=== PATIENT | male | born 1975 | race African-American/Black ===

== ENCOUNTER 2024-12-07 13:57 | Emergency (ER) | payer BC ==
[~2024-12-07] VITALS: Ht 180.3 cm; Wt 79.5 kg
[2024-12-07 14:31] VITALS: O2SAT 99
[2024-12-07 14:54] LABS: CLARITY URINE CLEAR (CLEAR); COLOR URINE YELLOW (YELLOW); GLUCOSE URINE NEGATIVE (NEGATIVE); KETONES URINE TRACE (NEGATIVE); LEUKOCYTE ESTERASE URINE NEGATIVE (NEGATIVE); NITRITE URINE NEGATIVE (NEGATIVE); OCCULT BLOOD URINE NEGATIVE (NEGATIVE); PROTEIN URINE NEGATIVE (NEGATIVE)
[2024-12-07 15:08] LABS: MUCUS URINE 3+ /lpf (NONE/TRACE); SQUAMOUS EPITHELIAL CELL URINE RARE /lpf (RARE/1+)
[2024-12-07 15:09] LABS: BACTERIA URINE NONE SEEN; RBC URINE NONE SEEN /hpf (0-2); WBC URINE 0-2 /hpf (0-2)
[2024-12-07 15:16] LABS: BASOPHILS % 0.5 % (0.0-2.0); EOSINOPHILS % 1.5 % (0.0-5.0); HEMATOCRIT. 41.5 % (42.0-52.0); HEMOGLOBIN. 14.2 g/dL (14.0-18.0); LYMPHOCYTES % 17.7 % (20.0-50.0); MEAN CORPUSCULAR HEMOGLOBIN 29.9 pg (28.0-32.0); MEAN CORPUSCULAR HGB CONC 34.2 g/dL (31.0-37.0); MEAN CORPUSCULAR VOLUME 87.6 fL (80.0-94.0); MEAN PLATELET VOLUME 7.5 fl (7.4-10.4); MONOCYTES % 7.6 % (2.0-8.0); NEUTROPHILS % 72.7 % (40.0-76.0); PLATELET 299 x1000/uL (130-400); RED BLOOD CELL COUNT 4.75 mill/uL (4.7-6.1); RED CELL DISTRIBUTION WIDTH 13.1 % (11.6-14.6); WHITE BLOOD COUNT 4.9 x1000/uL (4.5-11.0)
[2024-12-07 15:16] LABS: *AMPHETAMINES SCREEN URINE PRESUMPTIVE POSITIVE (NEGATIVE); *BARBITURATES SCREEN URINE NEGATIVE (NEGATIVE); *BENZODIAZEPINES SCREEN URINE NEGATIVE (NEGATIVE); *COCAINE SCREEN URINE NEGATIVE (NEGATIVE); CANNABINOID URINE SCREEN PRESUMPTIVE POSITIVE (NEGATIVE); ECSTASY MDMA SCREEN URINE CONF.TEST INDICATED (NEGATIVE); METHADONE URINE SCREEN NEGATIVE (NEGATIVE); OPIATES URINE SCREEN NEGATIVE (NEGATIVE); PHENCYCLIDINE URINE SCREEN NEGATIVE (NEGATIVE)
[2024-12-07 15:26] LABS: CHLORIDE 103 mEq/L (98-107); POTASSIUM 4.2 mEq/L (3.5-5.1); SODIUM 138 mEq/L (136-145)
[2024-12-07 15:27] LABS: CARBON DIOXIDE 28 mEq/L (21-32)
[2024-12-07 15:32] LABS: CREATININE 1.1 mg/dL (0.6-1.3); GLUCOSE 117 mg/dL (70-105); UREA NITROGEN BLOOD 11 mg/dL (9-23)
[2024-12-07 15:33] LABS: ETHANOL BLOOD 16 mg/dL (<10)
[2024-12-07] MEDS ORDERED: NALO4SPR BOTHNSTRLS (16:25)
[2024-12-07 16:40] VITALS: BP 102/70; PULSE 71; RESP 16; TEMP 36.7; O2SAT 100
== END 2024-12-07 16:40 | disposition home or self-care (01) ==
LOC: ER 13:57
DX: F23 Brief psychotic disorder (principal); F19.10 Other psychoactive substance abuse, uncomplicated; Z79.899 Other long term (current) drug therapy
CPT/HCPCS: 36415; 80048; 80305; 80320; 81003; 85025; 99283; G0480

== ENCOUNTER 2025-05-27 08:20 | Inpatient (IN) | payer BC, MEDICAID ==
[~2025-05-27] VITALS: Ht 180.3 cm; Wt 75.3 kg
[~2025-05-27 08:20] MED LIST: NALO4SPR BOTHNSTRLS
[2025-05-27 08:44] VITALS: O2SAT 100
[2025-05-27] MEDS: HYDROMORPHONE HCL/PF 2MG/ML INJ IM STA (10:06)
[2025-05-27 11:48] LABS: BASOPHILS % 0.5 % (0.0-2.0); EOSINOPHILS % 0.4 % (0.0-5.0); HEMATOCRIT. 42.8 % (42.0-52.0); HEMOGLOBIN. 14.1 g/dL (14.0-18.0); LYMPHOCYTES % 11.7 % (20.0-50.0); MEAN PLATELET VOLUME 8.3 fl (7.4-10.4); MONOCYTES % 8.9 % (2.0-8.0); NEUTROPHILS % 78.5 % (40.0-76.0); PLATELET 226 x1000/uL (130-400); RED BLOOD CELL COUNT 4.69 mill/uL (4.7-6.1); RED CELL DISTRIBUTION WIDTH 13.2 % (11.6-14.6)
[2025-05-27 12:02] LABS: CREATININE 0.9 mg/dL (0.6-1.3); INR 0.9; UREA NITROGEN BLOOD 7 mg/dL (9-23)
[2025-05-27 12:04] LABS: ASPARTATE AMINOTRANSFERASE 50 IU/L (<34); BILIRUBIN DIRECT 0.2 mg/dL (<=3.0); BILIRUBIN TOTAL 0.8 mg/dL (0.1-1.0); PROTEIN TOTAL 7.2 g/dL (6.0-8.3)
[2025-05-27] MEDS: HYDROMORPHONE HCL/PF 2MG/ML INJ IV ONE (14:29)
[2025-05-27] MEDS: ONDANSETRON HCL 4MG/2ML INJ IV ONE (14:30)
[2025-05-27] MEDS ORDERED: ONDANSETRON HCL 4MG/2ML INJ IV PRN (14:45)
[2025-05-27] MEDS ORDERED: CLONIDINE 0.1MG TABLET PO PRN (14:45)
[2025-05-27] MEDS ORDERED: ACETAMINOPHEN 325MG TABLET PO PRN (14:45)
[2025-05-27] MEDS ORDERED: IPRATROPIUM/ALBUTEROL 0.5-3(2.5)MG/3ML NEB HHN PRN (14:45)
[2025-05-27] MEDS ORDERED: MAGNESIUM/ALUMINUM HYDROXIDE/SIMETHICONE 30ML UDC PO PRN (14:45)
[2025-05-27] MEDS ORDERED: NALOXONE HCL 0.4MG/ML VIAL IV PRN (15:00)
[2025-05-27] MEDS: IOHEXOL-300 100 ML BOTTLE ONE (16:48)
[2025-05-27] MEDS ORDERED: SODIUM CHLORIDE 0.9% 1,000 ML IV SCH (17:45)
[2025-05-27] MEDS: SODIUM CHLORIDE 0.9% 1,000 ML IV ONE (18:00)
[2025-05-28] MEDS: MORPHINE SULFATE 2 MG/ML INJ (NOT FOR IM USE) IV PRN (05:52)
[2025-05-28 08:27] LABS: BASOPHILS % 0.4 % (0.0-2.0); EOSINOPHILS % 1.2 % (0.0-5.0); HEMATOCRIT. 43.0 % (42.0-52.0); HEMOGLOBIN. 14.3 g/dL (14.0-18.0); LYMPHOCYTES % 21.8 % (20.0-50.0); MEAN PLATELET VOLUME 8.7 fl (7.4-10.4); MONOCYTES % 8.5 % (2.0-8.0); NEUTROPHILS % 68.1 % (40.0-76.0); PLATELET 263 x1000/uL (130-400); RED BLOOD CELL COUNT 4.75 mill/uL (4.7-6.1); RED CELL DISTRIBUTION WIDTH 12.8 % (11.6-14.6)
[2025-05-28 08:41] LABS: CREATININE 1.0 mg/dL (0.6-1.3)
[2025-05-28 08:42] LABS: LDL CHOLESTEROL 74 mg/dL (5-100); TRIGLYCERIDE 80 mg/dL (0-150); UREA NITROGEN BLOOD 8 mg/dL (9-23)
[2025-05-28 08:44] LABS: T4 FREE 1.30 ng/dL (0.89-1.76)
[2025-05-28 12:00] VITALS: BP 132/88; PULSE 56; RESP 18; TEMP 36.6; O2SAT 98
[2025-05-28 16:00] VITALS: BP 131/87; PULSE 60; RESP 18; TEMP 36.7; O2SAT 98
[2025-05-28 20:00] VITALS: BP 145/77; PULSE 63; RESP 18; TEMP 36.4; O2SAT 97
[2025-05-29] VITALS: BP 132/78; PULSE 58; RESP 18; TEMP 36.3; O2SAT 98
[2025-05-29 04:00] VITALS: BP 139/80; PULSE 53; RESP 18; TEMP 36.5; O2SAT 98
[2025-05-29] MEDS ORDERED: ACETAMINOPHEN 1000MG/100ML 100 ML IV ONE (07:15)
[2025-05-29] MEDS ORDERED: FAMOTIDINE 20MG/2ML VIAL IV ONE (07:15)
[2025-05-29] MEDS ORDERED: ROCURONIUM BROMIDE 10MG/ML VIAL 5ML IV ONE ×2 (07:17→08:14)
[2025-05-29] MEDS ORDERED: PROPOFOL 200MG/20ML VIAL IV ONE ×2 (07:17→08:59)
[2025-05-29] MEDS ORDERED: DEXAMETHASONE 4MG/ML 1ML VIAL ONE (07:17)
[2025-05-29] MEDS ORDERED: CEFAZOLIN SODIUM 1000MG/VIAL ONE (07:17)
[2025-05-29] MEDS ORDERED: KETOROLAC 30MG/ML VIAL ONE (07:17)
[2025-05-29] MEDS ORDERED: PHENYLEPHRINE HCL 10MG/ML 1ML IV ONE (07:17)
[2025-05-29] MEDS ORDERED: BUPIVACAINE HCL/PF 0.5% (5MG/ML) 10ML ONE (07:17)
[2025-05-29] MEDS ORDERED: FENTANYL CITRATE/PF 50MCG/ML 2ML VIAL ONE (07:17)
[2025-05-29] MEDS ORDERED: LIDOCAINE HCL 1% 10 MG/ML 10ML VIAL ONE (07:17)
[2025-05-29] MEDS ORDERED: ONDANSETRON HCL 4MG/2ML INJ ONE (07:17)
[2025-05-29] MEDS ORDERED: MIDAZOLAM HCL 2 MG/2 ML VIAL ONE (07:18)
[2025-05-29] MEDS ORDERED: HYDROMORPHONE HCL/PF 1MG/ML INJ IV PRN (07:45)
[2025-05-29] MEDS ORDERED: ONDANSETRON HCL 4MG/2ML INJ IV PRN (07:45)
[2025-05-29] MEDS ORDERED: LABETALOL 5MG/ML 4ML INJ IV PRN (07:45)
[2025-05-29] MEDS ORDERED: HYDRALAZINE 20MG/ML VIAL IV PRN ×2 (07:45)
[2025-05-29] MEDS ORDERED: HYDROMORPHONE HCL/PF 2MG/ML INJ ONE (08:04)
[2025-05-29] MEDS ORDERED: SKIN ADHESIVE 0.7 GM EA TOP ONE (10:07)
[2025-05-29] MEDS: CEFAZOLIN 1000MG PREMIX 50 ML IV SCH (11:46)
[2025-05-29 11:50] LABS: PLATELET 303 x1000/uL (130-400); RED BLOOD CELL COUNT 4.83 mill/uL (4.7-6.1); RED CELL DISTRIBUTION WIDTH 12.5 % (11.6-14.6)
[2025-05-29 12:00] VITALS: BP 115/81; PULSE 82; RESP 20; TEMP 36.2; O2SAT 96
[2025-05-29 12:14] LABS: CREATININE 0.9 mg/dL (0.6-1.3)
[2025-05-29 12:17] LABS: UREA NITROGEN BLOOD 9 mg/dL (9-23)
[2025-05-29 16:00] VITALS: BP 133/66; PULSE 56; RESP 20; TEMP 36.3; O2SAT 100
[2025-05-29 20:00] VITALS: BP 138/71; PULSE 88; RESP 18; TEMP 36.2; O2SAT 98
[2025-05-29] MEDS: ACETAMINOPHEN 325MG TABLET PO PRN (23:24)
[2025-05-30] VITALS: BP 129/63; PULSE 72; RESP 16; TEMP 36.3; O2SAT 98
[2025-05-30 04:00] VITALS: BP 141/73; PULSE 86; RESP 17; TEMP 36.4; O2SAT 97
[2025-05-30 08:00] VITALS: BP 138/81; PULSE 62; RESP 17; TEMP 36.9; O2SAT 99
[2025-05-30] MEDS ORDERED: IBUP-1455 MT (09:19)
[2025-05-30 09:38] VITALS: BP 138/81; PULSE 62; RESP 17; TEMP 98.4
== END 2025-05-30 14:30 | disposition home or self-care (01) | DRG 516 ==
LOC: ER 08:20 → 6EST 13:39 → EDBEDREQTM 13:42 → EDBEDREQ 13:42 → ENRESERV 17:00
PROVIDERS: ADMIT Internal Medicine; ATTEND Internal Medicine
PROC: 0PSB04Z Reposition Left Clavicle with Internal Fixation Device, Open Approach (ICD-10-PCS; principal; 2025-05-29)
DX: S42.032A Displaced fracture of lateral end of left clavicle, initial encounter for closed fracture (principal); S22.42XA Multiple fractures of ribs, left side, initial encounter for closed fracture; S27.0XXA Traumatic pneumothorax, initial encounter; S27.321A Contusion of lung, unilateral, initial encounter; F19.10 Other psychoactive substance abuse, uncomplicated; R73.9 Hyperglycemia, unspecified; F14.90 Cocaine use, unspecified, uncomplicated; F15.90 Other stimulant use, unspecified, uncomplicated; F12.90 Cannabis use, unspecified, uncomplicated; Y93.89 Activity, other specified; X58.XXXA Exposure to other specified factors, initial encounter; Y92.89 Other specified places as the place of occurrence of the external cause; Y99.8 Other external cause status
CPT/HCPCS: 36415; 71250; 71260; 73000; 73030; 74177; 76000; 80048; 80061; 80076; 84439; 84443; 85025; 85027; 86850; 86900; 93970; 97162; 97166; 99291; A4565; J0665; J0690; J1100; J1171; J1308; J1885; J2003; J2250; J2270; J2371; J2405; J2704; J3010; J3490; J7120; Q9967; C1713; J0131